=== PATIENT | female | born 1990 | race Caucasian/White ===

== ENCOUNTER 2024-05-29 17:36 | Emergency (ER) | payer MEDICAID ==
[~2024-05-29] VITALS: Ht 167.6 cm; Wt 113.4 kg
[2024-05-29 17:41] VITALS: BP_SYST 143; PULSE 84; RESP 16; TEMP 98.2; O2SAT 98
[2024-05-29] MEDS: LIDOCAINE 1% 10 MG/ML, 20 ML MDV SUBCUT ONE (18:49)
[2024-05-29] MEDS: DIPHTH,PERTUSS(ACELL),TET VAC 0.5 ML VIAL (Tdap) I.M. ONE (18:50)
[2024-05-29] MEDS ORDERED: BACITRACIN 1 GM OINT TP ONE (19:06)
[2024-05-29 19:23] VITALS: BP_SYST 143; PULSE 84; RESP 16; TEMP 98.2; O2SAT 98
== END 2024-05-29 19:23 | disposition home or self-care (01) ==
LOC: SED 17:36
DX: S61.210A Laceration without foreign body of right index finger without damage to nail, initial encounter (principal); J45.909 Unspecified asthma, uncomplicated; W27.4XXA Contact with kitchen utensil, initial encounter; Y93.G1 Activity, food preparation and clean up; Y92.89 Other specified places as the place of occurrence of the external cause; Y99.8 Other external cause status
CPT/HCPCS: 99283; 90715; 90471; 12001; J2003